=== PATIENT | male | born 1985 | race Caucasian/White ===

== ENCOUNTER 2016-11-14 00:10 | Observation (INO) | payer OTHER ==
[2016-11-14] MEDS ORDERED: Sodium Chloride 0.9% 1,000 ML IV ONE ×2 (00:55→08:48)
--- NOTE | 2016-11-14 01:16 | EDM.PDOC ---
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 He states that he works a 14 day cycle, followed by 6 days off. Ordinarily, he drinks 300 mg of caffeinated beverages per day while working, then 5 Cokes per day on his 6 days off. On his most recent 6 days off, however, he states that he was drinking Coke continuously. He began his most recent 14 day cycle this past , , but cut down to 150 mg caffeine that day, then no caffeine at all on and 11/12/2016. He developed a pounding headache felt behind his eyes, therefore drank 3 Cokes this evening. He states that he developed a sensation of unbalance, and fell over. He then had nausea and vomiting. His colleagues were concerned, and the patient told them that he thought he was suffering from caffeine withdrawal. They gave him a pre-workout supplement that contained caffeine, after which the patient developed generalized shakiness. There was no loss of consciousness, and no seizure-like activity. No prior similar symptoms. No recent illnesses. The patient states that he is chronically sleep deprived. The patient states that he has bipolar affect disorder, PTSD, and ADD. He is treated with Lamictal, Zoloft, Reglan, and Depakote. He has been treated with Xanax 0.5 mg that he took every 2 or 3 days per his Psychiatrist in [place], but when he saw his Psychiatrist this past 11/09/2016, his Zoloft was increased from 25 mg daily to 50 mg daily, his Xanax was discontinued, and hydroxyzine was started. The patient states that he has only taken a single dose of hydroxyzine so far. The patient states that he takes testosterone cypionate, hCG, and anastrozole to treat fatigue that the patient believes is due to his psychiatric medications. He acquires these medicines over the Internet, prescribed by a physician that the patient has never met. He states that he injects testosterone once a week, followed by hCG on the second and third day, then anastrozole on the fourth and fifth days. He then takes none of these on the sixth and seventh day. - Related Data Allergies Allergy/AdvReac Type Severity Reaction Status Date / Time dicyclomine Allergy Hives Verified 11/14/16 00:12 Home Meds: Home Meds ALPRAZolam [Xanax] 0.5 mg PO QID PRN 08/19/16 [History] Divalproex Sodium [Depakote ER] 1,500 mg PO DAILY 08/19/16 [History] Methylphenidate HCl [Ritalin] 5 mg PO BID 08/19/16 [History] Sertraline [Zoloft] 50 mg PO DAILY 08/19/16 [History] lamoTRIgine [Lamictal] 200 mg PO DAILY 08/19/16 [History] Past Medical History Psychiatric History: Reports: ADD, Bipolar, PTSD - Past Surgical History HEENT Surgical History: Reports: Other (See Below) (Maxillofacial repair of dental injury) GI Surgical History: Reports: Hernia, Inguinal (bilateral) Male Surgical History: Reports: Varicocele Resection, Other (See Below) ( Varicocele embolization) Social & Family History - Family History Family Medical History: Noncontributory - Tobacco Use Smoking Status *Q: Never Smoker Second Hand Smoke Exposure: No - Caffeine Use Caffeine Use: Reports: Energy Drinks, Soda - Alcohol Use Alcohol Use History: Yes Alcohol Use Frequency: Socially - Recreational Drug Use Recreational Drug Use: No - Living Situation & Occupation Living situation: Reports: , with Spouse, with Family (2 kids) 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) ED ROS GENERAL - Review of Systems Review Of Systems: See Below Constitutional: Reports: Night Sweats HEENT: Reports: No Symptoms Respiratory: Reports: No Symptoms Cardiovascular: Reports: No Symptoms Endocrine: Reports: No Symptoms GI/Abdominal: Reports: Diarrhea (chronic since 2012) : Reports: No Symptoms Musculoskeletal: Reports: No Symptoms Skin: Reports: No Symptoms Neurological: Reports: No Symptoms Psychiatric: Reports: No Symptoms Hematologic/Lymphatic: Reports: No Symptoms Immunologic: Reports: No Symptoms ED EXAM, GENERAL - Physical Exam Exam: See Below Exam Limited By: No Limitations General Appearance: Alert, WD/WN, No Apparent Distress Eye Exam: Bilateral Eye: Normal Inspection Ears: Normal External Exam, Hearing Grossly Normal Nose: Normal Inspection, No Blood Throat/Mouth: Normal Inspection, Normal Lips, Normal Oropharynx, Normal Voice, No Airway Compromise Head: Atraumatic, Normocephalic Neck: Normal Inspection, Full Range of Motion Respiratory/Chest: No Respiratory Distress, Lungs Clear, Normal Breath Sounds, No Accessory Muscle Use Cardiovascular: Normal Peripheral Pulses, Regular Rate, Rhythm, No Gallop, No JVD, No Murmur, No Rub Peripheral Pulses: 4+: Radial (L), Radial (R) GI/Abdominal: Normal Bowel Sounds, Soft, Non-Tender, No Organomegaly, No Distention, No Abnormal Bruit, No Mass (Male) Exam: Deferred Rectal (Males) Exam: Deferred Back Exam: Normal Inspection, Full Range of Motion, NT Extremities: Normal Inspection, Normal Range of Motion, No Pedal Edema, Normal Capillary Refill Neurological: Alert, Oriented, Normal Cognition Psychiatric: Normal Affect Skin Exam: Warm, Intact, Normal Color, No Rash, Diaphoretic Lymphatic: No Adenopathy EKG INTERPRETATION EKG Date: 11/14/16 Rhythm: NSR Rate (Beats/Min): 78 [place]: Normal P-Wave: Present QRS: Normal ST-T: Normal QT: Normal Comparison: NA - No Prior EKG Course - Vital Signs Last Recorded V/S: Last Vital Signs Temp 36.4 C 11/14/16 00:13 Pulse 79 11/14/16 00:13 Resp 16 11/14/16 00:13 BP 169/97 H 11/14/16 00:13 Pulse Ox 100 11/14/16 00:13 Orthostatic Blood Pressure [ 155/80 Supine] Orthostatic Blood Pressure [ 162/86 Sitting] - Orders/Labs/Meds Orders: Active Orders 24 hr Category Date Time Status EKG Documentation Completion [RC] STAT Care 11/14/16 00:54 Active Orthostatic Vital Signs [RC] STAT Care 11/14/16 00:53 Active Magnesium Sulfate/Water [Magnesium Sulfate 2 GM in Med 11/14/16 01:38 Active Water 50 ML] 2 gm Premix Bag 1 bag IV ONETIME Medication Orders Magnesium Sulfate 2 gm/ Premix 50 mls @ 50 mls/hr IV ONETIME ONE Stop: 11/14/16 02:37 Last Admin: 11/14/16 01:47 Dose: 50 mls/hr Labs: Laboratory Tests 11/14/16 11/14/16 11/14/16 Range/Units 00:26 00:32 00:32 WBC 4.94 (4.23-9.07) K/mm3 RBC 4.73 (4.63-6.08) M/mm3 Hgb 14.3 (13.7-17.5) gm/L Hct 41.4 (40.1-51.0) % MCV 87.5 (79.0-92.2) fl MCH 30.2 (25.7-32.2) pg MCHC 34.5 (32.2-35.5) g/dl RDW Std Deviation 46.5 H (35.1-43.9) fL Plt Count 209 (163-337) K/mm3 MPV 10.6 (9.4-12.3) fl Neutrophils % (Manual) 57 (40-60) % Band Neutrophils % 0 (0-10) % Lymphocytes % (Manual) 29 (20-40) % Atypical Lymphs % 1 % Monocytes % (Manual) 12 H (2-10) % Eosinophils % (Manual) 0 L (0.8-7.0) % Basophils % (Manual) 1 (0.2-1.2) Platelet Estimate Adequate Plt Morphology Comment Normal Poikilocytosis 1+ slight Anisocytosis 1+ slight Microcytosis 1+ slight Macrocytosis 1+ slight Tear Drop Cells 1+ slight Schistocytes 1+ slight RBC Morph Comment Abnormal Sodium 135 L (136-145) mEq/L Potassium 3.8 (3.5-5.1) mEq/L Chloride 101 (98-107) mEq/L Carbon Dioxide 23 (21-32) mEq/L Anion Gap 14.8 (5-15) BUN 21 H (7-18) mg/dL Creatinine 1.0 (0.7-1.3) mg/dL Est Cr Clr Drug Dosing 108.01 mL/min Estimated GFR (MDRD) > 60 (>60) mL/min BUN/Creatinine Ratio 21.0 H (14-18) Glucose 106 (74-106) mg/dL Calcium 8.7 (8.5-10.1) mg/dL Phosphorus 2.3 L (2.6-4.7) mg/dL Magnesium 1.5 L (1.8-2.4) mg/dl Total Bilirubin 0.5 (0.2-1.0) mg/dL AST 54 H (15-37) U/L ALT 54 (16-63) U/L Alkaline Phosphatase 67 (46-116) U/L Creatine Kinase 1313 H (39-308) U/L Troponin I (0.00-0.056) ng/mL Total Protein 6.6 (6.4-8.2) g/dl Albumin 3.9 (3.4-5.0) g/dl Globulin 2.7 gm/dL Albumin/Globulin Ratio 1.4 (1-2) TSH 3rd Generation (0.358-3.74) uIU/mL Urine Opiates Screen Negative (NEGATIVE) Ur Buprenorphine Scrn Negative (NEGATIVE) Ur Oxycodone Screen Negative (NEGATIVE) Urine Methadone Screen Negative (NEGATIVE) Ur Propoxyphene Screen Negative (NEGATIVE) Ur Barbiturates Screen Negative (NEGATIVE) Phenytoin 0.4 L (10.0-20.0) ug/mL Valproic Acid (50.0-100.0) ug/mL Ur Tricyclics Screen Negative (NEGATIVE) Ur Phencyclidine Scrn Negative (NEGATIVE) Ur Amphetamine Screen Negative (NEGATIVE) U Methamphetamines Scrn Negative (NEGATIVE) U Benzodiazepines Scrn Negative (NEGATIVE) U Cocaine Metab Screen Negative (NEGATIVE) U Marijuana (THC) Screen Negative (NEGATIVE) 11/14/16 11/14/16 11/14/16 Range/Units 00:32 00:32 00:54 WBC (4.23-9.07) K/mm3 RBC (4.63-6.08) M/mm3 Hgb (13.7-17.5) gm/L Hct (40.1-51.0) % MCV (79.0-92.2) fl MCH (25.7-32.2) pg MCHC (32.2-35.5) g/dl RDW Std Deviation (35.1-43.9) fL Plt Count (163-337) K/mm3 MPV (9.4-12.3) fl Neutrophils % (Manual) (40-60) % Band Neutrophils % (0-10) % Lymphocytes % (Manual) (20-40) % Atypical Lymphs % % Monocytes % (Manual) (2-10) % Eosinophils % (Manual) (0.8-7.0) % Basophils % (Manual) (0.2-1.2) Platelet Estimate Plt Morphology Comment Poikilocytosis Anisocytosis Microcytosis Macrocytosis Tear Drop Cells Schistocytes RBC Morph Comment Sodium (136-145) mEq/L Potassium (3.5-5.1) mEq/L Chloride (98-107) mEq/L Carbon Dioxide (21-32) mEq/L Anion Gap (5-15) BUN (7-18) mg/dL Creatinine (0.7-1.3) mg/dL Est Cr Clr Drug Dosing mL/min Estimated GFR (MDRD) (>60) mL/min BUN/Creatinine Ratio (14-18) Glucose (74-106) mg/dL Calcium (8.5-10.1) mg/dL Phosphorus (2.6-4.7) mg/dL Magnesium (1.8-2.4) mg/dl Total Bilirubin (0.2-1.0) mg/dL AST (15-37) U/L ALT (16-63) U/L Alkaline Phosphatase (46-116) U/L Creatine Kinase (39-308) U/L Troponin I < 0.017 (0.00-0.056) ng/mL Total Protein (6.4-8.2) g/dl Albumin (3.4-5.0) g/dl Globulin gm/dL Albumin/Globulin Ratio (1-2) TSH 3rd Generation 1.309 (0.358-3.74) uIU/mL Urine Opiates Screen (NEGATIVE) Ur Buprenorphine Scrn (NEGATIVE) Ur Oxycodone Screen (NEGATIVE) Urine Methadone Screen (NEGATIVE) Ur Propoxyphene Screen (NEGATIVE) Ur Barbiturates Screen (NEGATIVE) Phenytoin (10.0-20.0) ug/mL Valproic Acid 87.6 (50.0-100.0) ug/mL Ur Tricyclics Screen (NEGATIVE) Ur Phencyclidine Scrn (NEGATIVE) Ur Amphetamine Screen (NEGATIVE) U Methamphetamines Scrn (NEGATIVE) U Benzodiazepines Scrn (NEGATIVE) U Cocaine Metab Screen (NEGATIVE) U Marijuana (THC) Screen (NEGATIVE) Meds: Medications Generic Name Dose Route Start Last Admin Trade Name Freq PRN Reason Stop Dose Admin Magnesium Sulfate 2 gm/ Premix 50 mls @ 50 mls/hr 11/14/16 01:38 11/14/16 01: 47 IV 11/14/16 02:37 50 mls/hr ONETIME ONE Administration Discontinued Medications Generic Name Dose Route Start Last Admin Trade Name [place] PRN Reason Stop Dose Admin Sodium Chloride 1,000 mls @ 999 mls/hr 11/14/16 00:55 11/14/16 01:50 Normal Saline IV 11/14/16 01:55 400 mls/hr ONETIME ONE Infusion - Re-Assessments/Exams Free Text/Narrative Re-Assessment/Exam: 11/14/16 01:18 The patient is not orthostatic, however, his nursewas only able to measure supine and sitting, as the patient was too weak to stand. 11/14/16 01:40 The patient's magnesium is mildly depressed at 1.5. I have ordered a 2 g magnesium rider. 11/14/16 02:12 The exact etiology of the patient's symptoms, including imbalance to the point of falling over, nausea, vomiting, shakiness, and severe muscle weakness is not entirely clear, however, I am concerned that his symptoms are related to his use of testosterone, hCG, and anastrozole. Testosterone has a 3% incidence of nervousness, <3% incidence of fatigue, and <3% incidence of vertigo. HCG has known side effects of fatigue and restlessness, and anastrozole has a 19% incidence of fatigue, and 13% to 19% incidence of weakness. 11/14/16 02:30 Test results discussed with the patient. I'm recommending admission to the hospital in order to follow his CPK and continue IV fluid. The patient is agreeable. Case then discussed with Dr. Greene at 02:26. He agrees to admit the patient to telemetry. I will write bridge orders. 11/14/16 02:37 The patient meets criterion for observation only. Departure - Departure Time of Disposition: 02:31 Disposition: Refer to Observation Condition: Fair Clinical Impression: Generalized weakness, Elevated CPK, Hypomagnesemia - Discharge Information - My Orders Last 24 Hours: My Active Orders 11/14/16 00:53 Orthostatic Vital Signs [RC] STAT 11/14/16 00:54 EKG Documentation Completion [RC] STAT 11/14/16 01:38 Magnesium Sulfate/Water [Magnesium Sulfate 2 GM in Water 50 ML] 2 gm Premix Bag 1 bag IV ONETIME - Assessment/Plan Last 24 Hours: My Active Orders 11/14/16 00:53 Orthostatic Vital Signs [RC] STAT 11/14/16 00:54 EKG Documentation Completion [RC] STAT 11/14/16 01:38 Magnesium Sulfate/Water [Magnesium Sulfate 2 GM in Water 50 ML] 2 gm Premix Bag 1 bag IV ONETIME
[2016-11-14] MEDS ORDERED: Magnesium Sulfate/Water 2 GM in Premix Bag 1 BAG IV ONE (01:38)
[2016-11-14] MEDS ORDERED: Sodium Chloride 0.9% 1,000 ML IV SCH (03:45)
[2016-11-14] MEDS ORDERED: diphenhydrAMINE 50 MG/ML SDV IVPUSH PRN (03:49)
[2016-11-14] MEDS ORDERED: LORazepam 2 MG/ML MDV IVPUSH PRN (03:51)
[2016-11-14] MEDS: Acetaminophen 325 MG Tab PO PRN ×2 (05:01→16:50)
--- NOTE | 2016-11-14 07:19 | PCM.HP ---
H&P History of Present Illness - General Date of Service: 11/14/16 Admit Problem/Dx: Admission Diagnosis/Problem Admission Diagnosis/Problem Weakness Source of Information: Patient, Provider, RN Notes Reviewed History Limitations: Reports: No Limitations - Related Data Allergies/Adverse Reactions: Allergies Allergy/AdvReac Type Severity Reaction Status Date / Time dicyclomine Allergy Hives Verified 11/14/16 04:07 Home Medications: Home Meds ALPRAZolam [Xanax] 0.5 mg PO QID PRN 08/19/16 [History] Divalproex Sodium [Depakote ER] 1,500 mg PO DAILY 08/19/16 [History] Methylphenidate HCl [Ritalin] 5 mg PO BID 08/19/16 [History] Sertraline [Zoloft] 50 mg PO DAILY 08/19/16 [History] lamoTRIgine [Lamictal] 200 mg PO DAILY 08/19/16 [History] Past Medical History - Past Health History Medical/Surgical History: Denies Medical/Surgical History Psychiatric History: Reports: ADD, Bipolar, PTSD - Past Surgical History HEENT Surgical History: Reports: Other (See Below) (Maxillofacial repair of dental injury) GI Surgical History: Reports: Hernia, Inguinal (bilateral) Male Surgical History: Reports: Varicocele Resection, Other (See Below) ( Varicocele embolization) Social & Family History - Family History Family Medical History: Noncontributory - Tobacco Use Smoking Status *Q: Never Smoker Second Hand Smoke Exposure: Yes - Caffeine Use Caffeine Use: Reports: Energy Drinks, Soda Other Caffeine Use: Cut down from 300 mg to 150 mg. 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) Exam - Vital Signs Vital Signs: Last Vital Signs Temp 36.4 C 11/14/16 00:13 Pulse 83 11/14/16 03:35 Resp 16 11/14/16 03:35 BP 123/77 11/14/16 03:35 Pulse Ox 95 11/14/16 03:35 Weight: 84.187 kg - Patient Data Lab Results Last 24 hrs: Laboratory Results - last 24 hr 11/14/16 Range/Units 05:21 Sodium 140 (136-145) mEq/L Potassium 3.7 (3.5-5.1) mEq/L Chloride 107 (98-107) mEq/L Carbon Dioxide 24 (21-32) mEq/L Anion Gap 12.7 (5-15) BUN 16 (7-18) mg/dL Creatinine 1.0 (0.7-1.3) mg/dL Est Cr Clr Drug Dosing 108.01 mL/min Estimated GFR (MDRD) > 60 (>60) mL/min BUN/Creatinine Ratio 16.0 (14-18) Glucose 141 H (74-106) mg/dL Calcium 8.2 L (8.5-10.1) mg/dL Creatine Kinase 1102 H (39-308) U/L Result Diagrams: 11/14/16 00:32 11/14/16 05:21 *Q Meaningful Use (ADM) - VTE *Q VTE Criteria *Q: - Stroke *Q Stroke Criteria *Q: - AMI *Q AMI Criteria *Q: Orders Last 24hrs: Active Orders 24 hr Category Date Time Status Patient Status [ADT] Routine ADT 11/14/16 03:14 Active Bedrest Bathroom Privileges [RC] ASDIRECTED Care 11/14/16 03:45 Active PT Evaluation and Treatment [CONS] Routine Cons 11/14/16 03:45 Active Regular Diet [DIET] Diet 11/14/16 Breakfast Active MAGNESIUM [CHEM] AM Lab 11/15/16 05:11 Ordered Acetaminophen [Tylenol] Med 11/14/16 04:12 Active 650 mg PO Q6H PRN Divalproex Sodium Med 11/14/16 09:00 Pending 1,500 mg PO DAILY LORazepam [Ativan] Med 11/14/16 03:51 Active 2 mg IVPUSH Q4H PRN Methylphenidate [Ritalin] Med 11/14/16 09:00 Active 5 mg PO BID Sertraline [Zoloft] Med 11/14/16 09:00 Active 50 mg PO DAILY Sodium Chloride 0.9% [Normal Saline] 1,000 ml Med 11/14/16 03:45 Active IV ASDIRECTED diphenhydrAMINE [Benadryl] Med 11/14/16 03:49 Active 15 mg IVPUSH BEDTIME PRN lamoTRIgine Med 11/14/16 09:00 Active 200 mg PO DAILY Resuscitation Status Routine Resus Stat 11/14/16 03:45 Ordered Medication Orders Acetaminophen (Tylenol) 650 mg PO Q6H PRN PRN Reason: Pain Last Admin: 11/14/16 05:01 Dose: 650 mg Diphenhydramine HCl (Benadryl) 15 mg IVPUSH BEDTIME PRN PRN Reason: Sleep Sodium Chloride (Normal Saline) 1,000 mls @ 150 mls/hr IV ASDIRECTED JD Last Admin: 11/14/16 04:05 Dose: 150 mls/hr Lamotrigine (Lamotrigine) 200 mg PO DAILY JD Lorazepam (Ativan) 2 mg IVPUSH Q4H PRN PRN Reason: Seizures Methylphenidate HCl (Ritalin) 5 mg PO BID JD Non-Formulary Medication (Divalproex Sodium) 1,500 mg PO DAILY JD Sertraline HCl (Zoloft) 50 mg PO DAILY JD
--- NOTE | 2016-11-14 08:55 | PCM.PN ---
- General Info Date of Service: 11/14/16 Functional Status: Reports: Pain Controlled, Tolerating Diet, Ambulating, Urinating. Denies: New Symptoms - Patient Data Vitals - Most Recent: Last Vital Signs Temp 98.2 F 11/14/16 03:45 Pulse 83 11/14/16 03:35 Resp 16 11/14/16 03:35 BP 123/77 11/14/16 03:35 Pulse Ox 95 11/14/16 03:35 Weight - Most Recent: 185 lb 9.6 oz I&O - Last 24 Hours: Intake & Output 11/13/16 11/14/16 11/14/16 22:59 06:59 14:59 Intake Total 1250 Output Total 1000 Balance 250 Lab Results Last 24 Hours: Laboratory Results - last 24 hr 11/14/16 11/14/16 Range/Units 05:21 05:21 Sodium 140 (136-145) mEq/L Potassium 3.7 (3.5-5.1) mEq/L Chloride 107 (98-107) mEq/L Carbon Dioxide 24 (21-32) mEq/L Anion Gap 12.7 (5-15) BUN 16 (7-18) mg/dL Creatinine 1.0 (0.7-1.3) mg/dL Est Cr Clr Drug Dosing 108.01 mL/min Estimated GFR (MDRD) > 60 (>60) mL/min BUN/Creatinine Ratio 16.0 (14-18) Glucose 141 H (74-106) mg/dL Calcium 8.2 L (8.5-10.1) mg/dL Magnesium 2.2 (1.8-2.4) mg/dl Creatine Kinase 1102 H (39-308) U/L Med Orders - Current: Current Medications Acetaminophen (Tylenol) 650 mg PO Q6H PRN PRN Reason: Pain Last Admin: 11/14/16 05:01 Dose: 650 mg Diphenhydramine HCl (Benadryl) 15 mg IVPUSH BEDTIME PRN PRN Reason: Sleep Famotidine (Pepcid) 20 mg PO BID JD Sodium Chloride (Normal Saline) 1,000 mls @ 999 mls/hr IV ONETIME ONE Stop: 11/14/16 09:48 Lamotrigine (Lamotrigine) 200 mg PO DAILY JD Lorazepam (Ativan) 2 mg IVPUSH Q4H PRN PRN Reason: Seizures Non-Formulary Medication (Divalproex Sodium) 1,500 mg PO DAILY JD Sertraline HCl (Zoloft) 50 mg PO DAILY JD Discontinued Medications Sodium Chloride (Normal Saline) 1,000 mls @ 999 mls/hr IV ONETIME ONE Stop: 11/14/16 01:55 Last Infusion: 11/14/16 01:50 Dose: 400 mls/hr Magnesium Sulfate 2 gm/ Premix 50 mls @ 50 mls/hr IV ONETIME ONE Stop: 11/14/16 02:37 Last Admin: 11/14/16 01:47 Dose: 50 mls/hr Sodium Chloride (Normal Saline) 1,000 mls @ 150 mls/hr IV ASDIRECTED JD Last Admin: 11/14/16 04:05 Dose: 150 mls/hr Methylphenidate HCl (Ritalin) 5 mg PO BID JD - My Orders Last 24 Hours: My Active Orders 11/14/16 08:45 Brain wo Cont [MR] Routine MRA Head Without Contrast [Ang Head wo Cont] [MR] Routine 11/14/16 08:46 Antiembolic Devices [RC] PER UNIT ROUTINE Sequential Compression Device [OM.PC] Routine 11/14/16 08:48 Sodium Chloride 0.9% [Normal Saline] 1,000 ml IV ONETIME 11/14/16 08:49 Consult to Rig Builder Helper [CONS] Routine 11/14/16 08:53 PT Evaluation and Treatment [CONS] Routine 11/14/16 09:00 Divalproex Sodium 1,500 mg PO DAILY Famotidine [Pepcid] 20 mg PO BID Sertraline [Zoloft] 50 mg PO DAILY lamoTRIgine 200 mg PO DAILY 11/15/16 05:11 MAGNESIUM [CHEM] AM
[2016-11-14] MEDS ORDERED: Methylphenidate 10 MG Tab PO SCH (09:00)
[2016-11-14] MEDS: Divalproex Sodium Delayed-Release 500 MG Tab.CR PO SCH ×2 (10:47→20:43)
[2016-11-14] MEDS: Divalproex Sodium Delayed-Release 250 MG Tab.CR PO SCH ×2 (10:48→20:43)
[2016-11-14] MEDS: lamoTRIgine 100 MG Tab PO SCH (10:49)
[2016-11-14] MEDS: Famotidine 20 MG Tab PO SCH ×2 (10:49→20:43)
[2016-11-14] MEDS: Sertraline 50 MG Tab PO SCH (10:49)
--- NOTE | 2016-11-14 11:48 | MR ---
MR angiogram of brain [id number] MR angiogram sequences obtained centered at the [place] with multiple MIP images being obtained. Comparison: No previous intracranial imaging Findings: Distal vertebral arteries as well as basilar artery appear unremarkable. Carotid siphon appears normal. Anterior, middle and posterior cerebral arteries appear within normal limits. No focal areas of narrowing are seen. No aneurysm is appreciated. Impression: 1. No abnormality is identified on MR angiogram study centered to the [place]. Diagnostic code #1
--- NOTE | 2016-11-14 11:48 | MR ---
MRI brain Technique: T1 sagittal; T2, T2 FLAIR, T1 and diffusion axial; T1 FLAIR coronal images were obtained. Comparison: No previous intracranial imaging. Findings: Ventricles along with basal cisterns and sulci over the convexities are within normal limits for the patient's age. Small retention cyst noted within the left maxillary sinus measuring 1.0 cm. No abnormal signal is seen within the brain parenchyma. No midline shift or mass effect is seen. No acute diffusion abnormalities are seen. Impression: 1. Small 1 cm retention cyst within the left maxillary sinus as an incidental note. 2. Other portions of the MRI brain appear within normal limits. Diagnostic code #2
--- NOTE | 2016-11-14 13:16 | PCM.HP ---
H&P History of Present Illness - General Date of Service: 11/14/16 Admit Problem/Dx: Admission Diagnosis/Problem Admission Diagnosis/Problem Weakness Source of Information: Patient, Other (ER notes/documentation) History Limitations: Reports: No Limitations - History of Present Illness Initial Comments - Free Text/Narative: Patient is a 31yo male admitted from ER for generalized weakness, hypomagnesemia and elevated CK level. He works in [employer] with [employer], 2 weeks on 1 week off. He has been struggling for months with chronic fatigue which he attributes to his psychiatric medications for bioplar disorder. He sees a psychiatrist in [place] for this and had recent medication changes. He feels his medications are keeping his moods very stable and he is happy with current medications other than the fatigue. Due to fatigue he started hormonal supplements one month ago directed by a "doctor out of [place]". He is taking testosterone IM, aromatase inhibitor and HCG in a scheduled or cycling dose. He feels this has helped his energy. He also states he drinks at least 300mg of caffeine daily when working and drinks "coke", "literally all day" when he is not working, "at least 6 cans a day" and "no water at all". He denies other health problems. Does admit to headaches that have been exacerbated with cardiovascular activity such as " power walking on the treadmill" in the form of pounding headache, to the point that he has to stop exercise. He has not gotten headaches prior to this past 2- 3 months. Yesterday he felt very weak, dizzy, to the point that he could no longer stand. His co-workers brought him into the ER for further evaluation. He lives in [place] with his and 2 kids during his week off. Onset of Symptoms: Reports: Sudden Duration of Symptoms: Reports: Hour(s): Location: Reports: Lower Extremity, Left, Lower Extremity, Right Quality: Reports: Dull Severity: Moderate Improves with: Reports: None Worsens with: Reports: Movement Associated Symptoms: Reports: Diaphoresis, Headaches, Malaise, Weakness. Denies : Confusion, Chest Pain, Cough, Nausea/Vomiting, Shortness of Breath headache Pain Score (Numeric/FACES): 4 - Related Data Allergies/Adverse Reactions: Allergies Allergy/AdvReac Type Severity Reaction Status Date / Time dicyclomine Allergy Hives Verified 11/14/16 04:07 Home Medications: Home Meds Divalproex Sodium [Depakote ER] 1,500 mg PO DAILY 08/19/16 [History] Methylphenidate HCl [Ritalin] 10 mg PO BID 08/19/16 [History] Sertraline [Zoloft] 50 mg PO DAILY 08/19/16 [History] lamoTRIgine [Lamictal] 200 mg PO DAILY 08/19/16 [History] hydrOXYzine HCl [Atarax] 25 mg PO DAILY PRN 11/14/16 [History] Past Medical History - Past Health History Medical/Surgical History: Denies Medical/Surgical History Psychiatric History: Reports: ADD, Bipolar, PTSD - Past Surgical History HEENT Surgical History: Reports: Other (See Below) (Maxillofacial repair of dental injury) GI Surgical History: Reports: Hernia, Inguinal (bilateral) Male Surgical History: Reports: Varicocele Resection, Other (See Below) ( Varicocele embolization) Social & Family History - Family History Family Medical History: Noncontributory - Tobacco Use Smoking Status *Q: Never Smoker Second Hand Smoke Exposure: Yes - Caffeine Use Caffeine Use: Reports: Energy Drinks, Soda Other Caffeine Use: Cut down from 300 mg to 150 mg. 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) H&P Review of Systems - Review of Systems: Review Of Systems: See Below General: Reports: Malaise, Weakness, Fatigue, Diaphoresis HEENT: Reports: Headaches Pulmonary: Reports: No Symptoms Cardiovascular: Reports: No Symptoms Gastrointestinal: Reports: No Symptoms Musculoskeletal: Reports: Muscle Pain, Muscle Stiffness Psychiatric: Reports: No Symptoms Neurological: Reports: Headache Exam - Exam Exam: See Below - Vital Signs Vital Signs: Last Vital Signs Temp 97.5 F 11/14/16 07:31 Pulse 66 11/14/16 07:31 Resp 16 11/14/16 03:35 BP 109/63 11/14/16 07:31 Pulse Ox 96 11/14/16 07:31 Weight: 185 lb 9.6 oz - Exam Quality Assessment: DVT Prophylaxis General: Alert, Oriented, Cooperative HEENT: Conjunctiva Clear, EACs Clear, EOMI, Hearing Intact, Mucosa Moist & [place] , Pupils Equal, Pupils Reactive Neck: Supple, Trachea Midline Lungs: Clear to Auscultation, Normal Respiratory Effort Cardiovascular: Regular Rate, Regular Rhythm GI/Abdominal Exam: Normal Bowel Sounds, Soft, Non-Tender, No Organomegaly (Male) Exam: Deferred Rectal (Males) Exam: Deferred Back Exam: Normal Inspection, Full Range of Motion Extremities: Normal Inspection, Normal Range of Motion, Non-Tender, No Pedal Edema, Normal Capillary Refill Peripheral Pulses: 2+: Brachial (L), Brachial (R), Posterior Tibial (L), Posterior Tibial (R), Dorsalis Pedis (L), Dorsalis Pedis (R) Skin: Warm, Dry, Intact Neurological: Cranial Nerves Intact Neuro Extensive - Mental Status: Alert, Oriented x3, Normal Mood/Affect, Normal Cognition, Memory Intact Neuro Extensive - Motor, Sensory, Reflexes: CN II-XII Intact Psychiatric: Alert, Normal Affect, Normal Mood - Patient Data Lab Results Last 24 hrs: Laboratory Results - last 24 hr 11/14/16 11/14/16 Range/Units 05:21 05:21 Sodium 140 (136-145) mEq/L Potassium 3.7 (3.5-5.1) mEq/L Chloride 107 (98-107) mEq/L Carbon Dioxide 24 (21-32) mEq/L Anion Gap 12.7 (5-15) BUN 16 (7-18) mg/dL Creatinine 1.0 (0.7-1.3) mg/dL Est Cr Clr Drug Dosing 108.01 mL/min Estimated GFR (MDRD) > 60 (>60) mL/min BUN/Creatinine Ratio 16.0 (14-18) Glucose 141 H (74-106) mg/dL Calcium 8.2 L (8.5-10.1) mg/dL Magnesium 2.2 (1.8-2.4) mg/dl Creatine Kinase 1102 H (39-308) U/L Result Diagrams: 11/14/16 00:32 11/14/16 05:21 *Q Meaningful Use (ADM) - VTE *Q VTE Criteria *Q: - Stroke *Q Stroke Criteria *Q: - AMI *Q AMI Criteria *Q: - Problem List (1) Generalized weakness SNOMED Code(s): 02082637 ICD Code: R53.1 - WEAKNESS Status: Acute Priority: High Current Visit: Yes (2) Elevated CPK SNOMED Code(s): 335572441 ICD Code: R74.8 - ABNORMAL LEVELS OF OTHER SERUM ENZYMES Status: Acute Priority: High Current Visit: Yes (3) Hypomagnesemia SNOMED Code(s): 636217298 ICD Code: E83.42 - HYPOMAGNESEMIA Status: Acute Priority: High Current Visit: Yes (4) Headache SNOMED Code(s): 46243291 ICD Code: R51 - HEADACHE Status: Acute Priority: High Current Visit: Yes Qualifiers: Headache type: unspecified Headache chronicity pattern: acute headache Intractability: not intractable Qualified Code(s): R51 - Headache Problem List Initiated/Reviewed/Updated: Yes Orders Last 24hrs: Active Orders 24 hr Category Date Time Status Patient Status [ADT] Routine ADT 11/14/16 03:14 Active Antiembolic Devices [RC] PER UNIT ROUTINE Care 11/14/16 08:46 Active Bedrest Bathroom Privileges [RC] QSHIFT Care 11/14/16 03:45 Active Consult to Social Sciences Lecturer [CONS] Routine Cons 11/14/16 08:49 Active PT Evaluation and Treatment [CONS] Routine Cons 11/14/16 03:45 Active PT Evaluation and Treatment [CONS] Routine Cons 11/14/16 08:53 Active Regular Diet [DIET] Diet 11/14/16 Breakfast Active MAGNESIUM [CHEM] AM Lab 11/15/16 05:11 Ordered Acetaminophen [Tylenol] Med 11/14/16 04:12 Active 650 mg PO Q6H PRN Divalproex Sodium Med 11/14/16 09:00 Active 250 mg PO BID Divalproex Sodium [Depakote] Med 11/14/16 09:00 Active 500 mg PO BID Famotidine [Pepcid] Med 11/14/16 09:00 Active 20 mg PO BID LORazepam [Ativan] Med 11/14/16 03:51 Active 2 mg IVPUSH Q4H PRN Sertraline [Zoloft] Med 11/14/16 09:00 Active 50 mg PO DAILY diphenhydrAMINE [Benadryl] Med 11/14/16 03:49 Active 15 mg IVPUSH BEDTIME PRN lamoTRIgine Med 11/14/16 09:00 Active 200 mg PO DAILY Sequential Compression Device [OM.PC] Routine Oth 11/14/16 08:46 Ordered Resuscitation Status Routine Resus Stat 11/14/16 03:45 Ordered Medication Orders Acetaminophen (Tylenol) 650 mg PO Q6H PRN PRN Reason: Pain Last Admin: 11/14/16 05:01 Dose: 650 mg Diphenhydramine HCl (Benadryl) 15 mg IVPUSH BEDTIME PRN PRN Reason: Sleep Divalproex Sodium (Depakote) 500 mg PO BID [facility] Last Admin: 11/14/16 10:47 Dose: 500 mg Divalproex Sodium (Divalproex Sodium) 250 mg PO BID [facility] Last Admin: 11/14/16 10:48 Dose: 250 mg Famotidine (Pepcid) 20 mg PO BID [facility] Last Admin: 11/14/16 10:49 Dose: 20 mg Lamotrigine (Lamotrigine) 200 mg PO DAILY [facility] Last Admin: 11/14/16 10:49 Dose: 200 mg Lorazepam (Ativan) 2 mg IVPUSH Q4H PRN PRN Reason: Seizures Sertraline HCl (Zoloft) 50 mg PO DAILY [facility] Last Admin: 11/14/16 10:49 Dose: 50 mg Assessment/Plan Comment:: I/P: Generalized weakness- likely multifactorial with supplemental hormone use, caffeine use/abuse, dehydration -IVF/hydration -Caffeine cessation -Hormone supplement cessation -Negative UDS Elevated CK/Rabdomyolysis -IVF- hydration -Follow CK levels -Follow renal function -Education provided Hypomagnesemia -Supplement and follow am labs Headache- acute on chronic with ? vertigo component -Worse with exertion/exercise -MRI/MRA to r/o aneurysm or other structural abnormalities -Likely related to hormonal supplements/testosterone and caffeine use/abuse Other: GI/DVT prophylax PT to eval and tx- vertigo and weakness Social Sciences Lecturer for education re: supplements, caffeine use/abuse CM/SW for assist with DC planning Follow CK levels, DC likely tomorrow am. Patient is full code status.
[2016-11-14] MEDS ORDERED: Sodium Chloride 0.9% 1,000 ML ONE (14:13)
[2016-11-14] MEDS: Sodium Chloride 0.9% 1,000 ML IV SCH ×3 (14:21→23:42)
--- NOTE | 2016-11-14 15:13 | PCM.SN ---
- Free Text/Narrative Note: Patient seen and examine at bedside. Patient is a [place] and he is currently seeking medical care through the [facility]. He carries a history of PTSD with bipolar disorder and ADD. He is on Lamictal, Depakote, Ritalin, Benzo and Zoloft for psych treatment. Patient had been feeling fatigued and tired since on these medications. He felt he may be low on testosterone and was told by a co-worker to see an online specialist in [place]. Patient did exactly what he was told and provided blood sample in which he was found to have low levels of testosterone. Unfortunately during his consultation, no physical examination performed to rule out testicular atrophy; not even to check for thyroid dysfunction. Currently, he is on testosterone and human chorionic gonadotropin injections with aromatase inhibitor to prevent conversion to estrogen for medical management of his fatigue and low levels of energy. Patient recently had a Tele-Psych consultation thru the [facility] in [place]. At that that, his Depakote and Lamictal were continued but Zoloft was discontinued. He was however switched to Hydroxyzin. Patient was on Ritalin and also taking adequate amount of caffeinated products for stimulants. Physical examination shows benign thyroid and normal size testicles. Putting it all together, I believe all his psychotropic medications are causing him to feel fatigue and tired as well as having low libido. I personally reviewed all his home meds and most if not all of it causes some form of sexual dysfunction. Patient is a young man and carries no hx/o congenital gonadal dysfunction. Therefore, strongly discouraged him from continuing his "testosterone cocktail" . I advised him to speak with his shrink and possibly switched him to a different medications with less unwanted side effects to include low libido. Patient expressed understanding and in agreement with the plans as discussed above. If stable, he will be discharged home tomorrow.
[2016-11-15] MEDS: Acetaminophen 325 MG Tab PO PRN (02:17)
[2016-11-15] MEDS: Sodium Chloride 0.9% 1,000 ML IV SCH ×2 (03:45→08:14)
[2016-11-15] MEDS: lamoTRIgine 100 MG Tab PO SCH (08:14)
[2016-11-15] MEDS: Sertraline 50 MG Tab PO SCH (08:14)
[2016-11-15] MEDS: Divalproex Sodium Delayed-Release 500 MG Tab.CR PO SCH (08:14)
[2016-11-15] MEDS: Divalproex Sodium Delayed-Release 250 MG Tab.CR PO SCH (08:14)
[2016-11-15] MEDS: Famotidine 20 MG Tab PO SCH (08:14)
[2016-11-15 08:24] VITALS: BP 112/57
[2016-11-15] MEDS ORDERED: Calcium Carbonate 500 MG Tab.Chew PO PRN (09:24)
--- NOTE | 2016-11-15 09:24 | PCM.DCSUM1 ---
Discharge Summary - Hospital Course Brief History: Patient is a 31 yo male with past medical hx/o PTSD and ADD who presented to ED with complaints of generalized weakness and was found to have hypomagnesemia and elevated CK level. - Discharge Data Discharge Date: 11/15/16 Discharge Disposition: Home, Self-Care 01 Condition: Good - Discharge Diagnosis/Problem(s) (1) Fatigue SNOMED Code(s): 56840703 ICD Code: R53.83 - OTHER FATIGUE Status: Chronic Qualifiers: Fatigue type: chronic, unspecified Qualified Code(s): R53.82 - Chronic fatigue, unspecified (2) Testosterone deficiency in male SNOMED Code(s): 5515682427862 ICD Code: E29.1 - TESTICULAR HYPOFUNCTION Status: Chronic (3) Elevated CPK SNOMED Code(s): 632705757 ICD Code: R74.8 - ABNORMAL LEVELS OF OTHER SERUM ENZYMES Status: Acute Priority: High (4) Generalized weakness SNOMED Code(s): 48205410 ICD Code: R53.1 - WEAKNESS Status: Resolved Priority: High (5) Headache SNOMED Code(s): 27294601 ICD Code: R51 - HEADACHE Status: Resolved Priority: High Qualifiers: Headache type: unspecified Headache chronicity pattern: acute headache Intractability: not intractable Qualified Code(s): R51 - Headache (6) Hypomagnesemia SNOMED Code(s): 480372757 ICD Code: E83.42 - HYPOMAGNESEMIA Status: Resolved Priority: High - Patient Summary/Data Operative Procedure(s) Performed: None Complications: None Consults: Consultations 11/14/16 03:45 PT Evaluation and Treatment [CONS] Routine 11/14/16 08:49 Consult to Route Salesman And Driver [CONS] Routine 11/14/16 08:53 PT Evaluation and Treatment [CONS] Routine Recommended Follow-up Testing/Procedures: Follow up with Psych Hospital Course: Patient was primarily admitted for medical management of complications related to testosterone treatment. Patient was taking injectable testosterone along with Hcg and aromatase inhibitor to improve his testosterone level. On this admission, he was found to have low level of Magnesium and but with mildly elevated CPK which we felt was related to his testosterone injection. His hospital course was uncomplicated. He was admitted for observation due to generalized weakness and likely sleep deprivation but with supportive care, the patient slowly improved. Patient is now stable for discharge. He was advised to see his psychiatrist immediately and possibly to switch him to different medications with less side effects. Patient was advised to continue with his testosterone treatment with my recommended regimen until he finishes off his current medications, after that he is to to stop taking it. Patient was advised to get a primary care doctor locally monitor or follow him. He is to come back or seek immediate care should his symptoms persist or get worse. The patient expressed understanding and in agreement with the plans as discussed about all questions were answered. - Patient Instructions Diet: Usual Diet as Tolerated Activity: As Tolerated Driving: May Drive Today Showering/Bathing: May Shower Notify Provider of: Fever, Increased Pain, Swelling and Redness, Nausea and/or Vomiting Other/Special Instructions: - Please follow up with Psych immediately. - Resume routine daily activity without restrictions starting tomorrow. - Recommend you be switched to a different psych meds with less unwanted side effects. - Recommend you stop your testosterone treatment and if you choose to do so, please follow my suggested regimen. - Watch your caffein intake while taking Ritalin. - Get a family doctor that can follow you after discharge - Discharge Plan Home Medications: Home Meds Divalproex Sodium [Depakote ER] 1,500 mg PO DAILY 08/19/16 [History] Methylphenidate HCl [Ritalin] 10 mg PO BID 08/19/16 [History] Sertraline [Zoloft] 50 mg PO DAILY 08/19/16 [History] lamoTRIgine [Lamictal] 200 mg PO DAILY 08/19/16 [History] hydrOXYzine HCl [Atarax] 25 mg PO DAILY PRN 11/14/16 [History] Patient Handouts: Creatine Kinase Test, Weakness, [id number] Referrals: PCP,Not In Area [Primary Care Provider] - (Please call and make a follow up with your primary care provider. ) - Discharge Summary/Plan Comment DC Time >30 min.: Yes (45 mins) Discharge Summary/Plan Comment: Discharge to Home - General Info Date of Service: 11/15/16 Admission Dx/Problem (Free Text: Admission Diagnosis/Problem Admission Diagnosis/Problem Weakness Subjective Update: Follow Up Functional Status: Reports: Pain Controlled, Tolerating Diet, Ambulating, Urinating. Denies: New Symptoms - Review of Systems General: Denies: Fever, Weakness, Fatigue, Malaise, Chills HEENT: Reports: No Symptoms Pulmonary: Denies: Shortness of Breath Cardiovascular: Denies: Chest Pain, Palpitations, Dyspnea on Exertion, Lightheadedness Gastrointestinal: Denies: Abdominal Pain, Nausea, Vomiting Genitourinary: Reports: No Symptoms Musculoskeletal: Reports: No Symptoms Skin: Denies: Cyanosis, Mottled, Pallor, Rash Neurological: Denies: Confusion, Dizziness, Seizure, Difficulty Walking, Weakness, Gait Disturbance Psychiatric: Denies: Depression, Anxiety, Agitation, Hallucinations Systems Review Comment: No overnight or acute issues. He is doing relatively well. He has no new complaints. - Patient Data Vitals - Most Recent: Last Vital Signs Temp 36.3 C 11/15/16 08:23 Pulse 64 11/15/16 08:23 Resp 15 11/15/16 08:23 BP 112/57 L 11/15/16 08:23 Pulse Ox 96 11/15/16 08:23 Weight - Most Recent: 86.228 kg I&O - Last 24 hours: Intake & Output 11/14/16 11/15/16 11/15/16 22:59 06:59 14:59 Intake Total 2390 4319 Output Total 2150 1880 500 Balance 240 2439 -500 Lab Results - Last 24 hrs: Laboratory Results - last 24 hr 11/15/16 11/15/16 Range/Units 06:25 06:25 Magnesium 1.8 (1.8-2.4) mg/dl Free T4 0.76 (0.76-1.46) ng/dL TSH 3rd Generation 0.947 (0.358-3.74) uIU/mL Med Orders - Current: Current Medications Acetaminophen (Tylenol) 650 mg PO Q6H PRN PRN Reason: Pain Last Admin: 11/15/16 02:17 Dose: 650 mg Diphenhydramine HCl (Benadryl) 15 mg IVPUSH BEDTIME PRN PRN Reason: Sleep Divalproex Sodium (Depakote) 500 mg PO BID [facility] Last Admin: 11/15/16 08:14 Dose: 500 mg Divalproex Sodium (Divalproex Sodium) 250 mg PO BID [facility] Last Admin: 11/15/16 08:14 Dose: 250 mg Famotidine (Pepcid) 20 mg PO BID [facility] Last Admin: 11/15/16 08:14 Dose: 20 mg Lamotrigine (Lamotrigine) 200 mg PO DAILY [facility] Last Admin: 11/15/16 08:14 Dose: 200 mg Lorazepam (Ativan) 2 mg IVPUSH Q4H PRN PRN Reason: Seizures Sertraline HCl (Zoloft) 50 mg PO DAILY [facility] Last Admin: 11/15/16 08:14 Dose: 50 mg Discontinued Medications Sodium Chloride (Normal Saline) 1,000 mls @ 999 mls/hr IV ONETIME ONE Stop: 11/14/16 01:55 Last Infusion: 11/14/16 01:50 Dose: 400 mls/hr Magnesium Sulfate 2 gm/ Premix 50 mls @ 50 mls/hr IV ONETIME ONE Stop: 11/14/16 02:37 Last Admin: 11/14/16 01:47 Dose: 50 mls/hr Sodium Chloride (Normal Saline) 1,000 mls @ 150 mls/hr IV ASDIRECTED [facility] Last Admin: 11/14/16 04:05 Dose: 150 mls/hr Sodium Chloride (Normal Saline) 1,000 mls @ 999 mls/hr IV ONETIME ONE Stop: 11/14/16 09:48 Last Admin: 11/14/16 10:39 Dose: 999 mls/hr Sodium Chloride (Normal Saline) 1,000 mls @ 250 mls/hr IV ASDIRECTED [facility] Last Admin: 11/15/16 08:14 Dose: 250 mls/hr Sodium Chloride (Normal Saline) Confirm Administered Dose 1,000 mls @ as directed .ROUTE .STK-MED ONE Stop: 11/14/16 14:14 Last Admin: 11/14/16 14:21 Dose: Not Given Methylphenidate HCl (Ritalin) 5 mg PO BID [facility] - Exam General: Reports: Alert, Oriented, Cooperative, No Acute Distress HEENT: Reports: Pupils Equal, Pupils Reactive, EOMI, Mucous Membr. Moist/[place] Neck: Reports: Supple, Trachea Midline, No JVD, No Thyromegaly Lungs: Reports: Clear to Auscultation, Normal Respiratory Effort, Decreased Breath Sounds Cardiovascular: Reports: Regular Rate, Regular Rhythm GI/Abdominal Exam: Normal Bowel Sounds, Soft, Non-Tender, No Organomegaly, No Distention, No Abnormal Bruit, No Mass (Male) Exam: Deferred Rectal (Males) Exam: Deferred Back Exam: Reports: Normal Inspection, Decreased Range of Motion Extremities: Normal Inspection, Normal Range of Motion, Non-Tender, No Pedal Edema, Normal Capillary Refill Skin: Reports: Warm, Dry, Intact Neurological: Reports: No New Focal Deficit Psy/Mental Status: Reports: Alert, Normal Affect, Normal Mood *Q Meaningful Use (DIS) - VTE *Q VTE Criteria *Q: - Stroke *Q Stroke Criteria *Q: - AMI *Q AMI Criteria *Q:
== END 2016-11-15 18:00 | disposition home or self-care (01) ==
LOC: JD.ED 00:10 → JD.MS 02:40
PROVIDERS: ADMIT Internal Medicine Cardiovascular Disease; ATTEND Internal Medicine
DX: R53.1 Weakness (principal); R53.82 Chronic fatigue, unspecified; E23.1 Drug-induced hypopituitarism; R74.8 Abnormal levels of other serum enzymes; R51 Headache; E83.42 Hypomagnesemia; F31.9 Bipolar disorder, unspecified; F90.9 Attention-deficit hyperactivity disorder, unspecified type; Z88.8 Allergy status to other drugs, medicaments and biological substances; Z79.899 Other long term (current) drug therapy; Z98.890 Other specified postprocedural states
CPT/HCPCS: 36415; 70544; 70551; 80048; 80053; 80164; 80185; 80306; 82550; 83735; 84100; 84439; 84443; 84484; 85025; 93005; 96361; 96365; 97162; 99285; A9270; G0378; J7040; J3475